=== PATIENT | female | born 2000 | race Caucasian/White ===

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

== ENCOUNTER 2022-04-22 02:57 | Inpatient (IN) ==
[2022-04-22] MEDS ORDERED: LIDOCAINE 1% LOCAL 20 ML VIAL INFIL PRN (03:59)
[2022-04-22] MEDS ORDERED: OXYTOCIN 30 UNITS/500 ML BAG IV PRN ×3 (03:59→15:31)
[2022-04-22 05:03] LABS: Hemoglobin 11.9 g/dl (12.0-16.0); Mean Corpuscular Hemoglobin 28.7 pg (25.0-34.0); Mean Corpuscular Volume 84.3 fL (80.0-100.0); Mean Platelet Volume 9.9 fL (9.4-12.3); Platelet Count 243 K/uL (130-400); RDW Coefficient of Variation 13.5 % (11.5-14.5); RDW Standard Deviation 41.5 fL (36.4-46.3); Red Blood Count 4.15 M/uL (3.93-5.22); White Blood Count 12.98 K/ul (4.8-10.8)
--- NOTE | 2022-04-22 07:02 | History & Physical Report ---
Date of Service April 22, 2022 Assessment & Plan (1) Encounter for induction of labor: (2) 41 weeks gestation of : (3) Migraine headache: (4) Supervision of normal first : Plan Alberta is a 21F currently at 41 1/7 with KATELYN 04/14/22 determined by LMP of 07/04/21 who is presenting to L&D d/t regular contractions early AM of 04/22. Patient was scheduled for induction 04/22. - Patient admitted to labor and delivery for labor, no ROM - Membrane sweep 04/19 - Presented early AM 04/22 w/ regular contractions (~5 minutes) - Category 1 FHT, w/ contractions 2 minutes apart @ 0600 - D/E/S: Pending OBGYN exam - Consider augmentation w/ oxytocin if not progressing - Once contractions are progressing, will consider ROM - Patient desires to avoid epidural, pain control discussed w/ patient - Labs pending Admission and Anticipated Discharge Date Admission Date: April 22, 2022 History of Present Illness Chief Complaint: Labor Primary Care Provider: NO PCP Subjective: Alberta is a 21F currently at 41 1/7 with KATELYN 04/14/22 determined by LMP of 07/04/21 who is presenting to L&D d/t regular contractions early AM of 04/22. Patient was scheduled for induction 04/22. Complications: None Reason for Induction: Post-date Movement: Yes Fluid Loss/ROM: None Bloody show/discharge: Lost mucous plug ~2400 on 04/21, occasional spotting since membrane sweep 04/19 Contractions: Patient notes contractions became 5 min apart ~ 2400 on 04/21, patient has experienced random contraction since membrane sweep in office 04/19. External FHT and uterine monitor: Category 1, tracing reactive, good FHT variability (accelerations w/o decelerations), average 135-140 Last OB appointment: 04/19, regular care D[employer] IN[employer] Hx: No hx of abnormal paps, No hx of STDs Labs: Blood Type: O+ Antibody Screen: Negative Hg/Hct (today): 11.9/35 WBC/Plt (today): 12.98/243 Rubella: Immune RPR: Non-reactive Gonorrhea: Negative Chlamydia: Negative HIV: Negative HbSAg: Negative GBS: Negative Cff-DNA: Low risk Panorama: Low risk ROS: - Denies fever, chills, endorses sweats (chronic) - Denies dyspnea or pleuritic pain - Denies chest pain, palpitations, or pressure - Denies breast pain - Denies dysuria - Denies headache or visual changes - Endorses chronic migraines, required ER visit in February, lack of response to Tylenol/Magnesium, none at present . Allergies Allergy/AdvReac Type Severity Reaction Status Date / Time No Known Allergies Allergy Verified 04/19/22 08:29 Home Medications Medication Instructions Recorded Confirmed Type prenat.vits,luis a,tpd-[id number]-diqhv 1 tab PO DAILY 08/20/21 04/22/22 History Patient History Medical History Anxiety and depression Migraine headache Surgical History [place] teeth extracted Family History Aunt Breast cancer paternal Other Hypertension Denies family history of Ovarian cancer Colorectal cancer Uterine cancer Social History Smoking Status: Never smoker Second Hand Exposure: No; Do You Dip or Chew Tobacco: No; Tobacco Cessation Education Requested by Patient: No Hx Alcohol Use: No Hx Substance Use: No Preferred Language: Bangladeshi Communication Ability: Effective Rail Walker Required: No Beliefs That Will Affect Care: None marital status: Single marital status details: wander Escobedo (21) [phone] Current Living Situation: Significant Other Current Living Situation Comment: Lives with boyfriend and 1 cat current occupational status: employed current occupation: [employer] Other Information That Helps Us Care for You: No Feels Safe at Home: Yes Safety Concerns: Feels Safe At This Time Assistive Devices: None Physical Exam Physical Exam: General: Alert, oriented. No acute distress. Cardiac: Regular rate and rhythm, no murmurs/rubs/gallops. Respiratory: Clear to auscultation bilaterally a/p, no wheezes/rales/rhonchi. No increased work of breathing. Symmetrical chest rise. No respiratory distress. Abdomen: Gravid; reactive FHTs; Position: Vertex via John Maneuver Pelvic: D/E/S pending OBGYN examination. Lower Extremities: 1+ non-pitting lower extremity edema. No deep calf pain. Kellie's negative bilaterally Results & Data ([facility]) Vital Signs (Past 12 Hours) Vital Signs Temp Pulse Resp BP 04/22/22 06:03 87 134/79 04/22/22 05:08 98 H 134/76 04/22/22 03:17 85 149/73 H 04/22/22 03:13 92 H 143/67 H 04/22/22 03:18 36.6 C 85 18 149/73 H Code Status & VTE Plan Code Status Full Code Resident Activity Tracking Resident Involvement: Resident Care Provided Care Provided: OB Delivery
[2022-04-22] MEDS: LACTATED RINGER'S 1,000 ML IV PRN ×2 (07:25→09:02)
[2022-04-22] MEDS: BUTORPHANOL TARTRATE 1 MG/ML VIAL IV PRN ×2 (07:29→08:35)
[2022-04-22] MEDS ORDERED: ePHEDrine sulfate 50 MG/ML AMP ONE (08:42)
[2022-04-22] MEDS ORDERED: fentaNYL citrate 100 MCG/2 ML VIAL ONE (08:43)
[2022-04-22] MEDS ORDERED: BUPIVACAINE 0.25% 30 ML VIAL ONE (08:43)
[2022-04-22] MEDS ORDERED: LIDOCAINE 2%/EPINEPHRINE 1:200,000 20 ML SDV ONE (08:43)
[2022-04-22] MEDS ORDERED: SODIUM CHLORIDE 0.9% INJ 10 ML VIAL ONE (08:43)
[2022-04-22] MEDS ORDERED: fentaNYL 2MCG/ML ROPIVACAINE 1.25MG/ML 100 ML BAG EPI ONE (08:44)
[2022-04-22] MEDS ORDERED: PROMETHAZINE HCL 6.25 MG in SODIUM CHLORIDE 0.9% 50 ML IV PRN (09:33)
[2022-04-22] MEDS ORDERED: diphenhydrAMINE 50 MG/ML VIAL IV PRN (09:33)
[2022-04-22] MEDS ORDERED: ePHEDrine sulfate 50 MG/ML AMP IV PRN (09:33)
[2022-04-22] MEDS ORDERED: NALOXONE HCL 1 MG in SODIUM CHLORIDE 0.9% 1000ML 1,000 ML IV PRN (09:33)
[2022-04-22] MEDS ORDERED: NALBUPHINE HCL INJ 10 MG/ML AMP IV PRN (09:33)
[2022-04-22] MEDS ORDERED: fentaNYL 2MCG/ML ROPIVACAINE 1.25MG/ML 100 ML BAG EPI PRN (09:33)
[2022-04-22] MEDS ORDERED: ONDANSETRON INJ 2 MG/ML 2 ML VIAL IV PRN (09:33)
[2022-04-22] MEDS ORDERED: NALOXONE HCL 0.4 MG/1 ML VIAL/CARP IV PRN (09:33)
--- NOTE | 2022-04-22 09:33 | Anesthesiology Consultation ---
Date of Service April 22, 2022 Assessment & Plan Chart Review Chart Review: Patient NOT seen in Pre Admission Testing and Acceptable Risk for Labor Epidural Consults Requested none ASA ASA2 Proposed Anesthesia Anesthesia Type: Labor Epidural Risk / Benefits Reviewed With: PT / POA / Parent / Guardian, Accepts Plan and Informed Consent Obtained History Height/Weight Height: 5 ft 3 in Weight: 108.862 kg Allergies Allergy/AdvReac Type Severity Reaction Status Date / Time No Known Allergies Allergy Verified 04/19/22 08:29 Medications Home Medications Medication Instructions Recorded Confirmed Last Taken prenat.vits,luis a,xtd-cgvn-mrurj 1 tab PO DAILY 08/20/21 04/22/22 04/21/22 08:00 Active Medications Generic Name Dose Route Start Last Admin Trade Name Freq PRN Reason Stop Dose Admin Butorphanol Tartrate 1 mg 04/22/22 07:23 04/22/22 08:35 Butorphanol Tartrate 1 Mg/Ml Vial IV 05/22/22 07:22 1 mg Q1H PRN Administration Pain Lactated Ringer's 1,000 mls @ 125 mls/hr 04/22/22 03:59 04/22/22 09:02 Lr IV 04/24/22 03:58 125 mls/hr .Q8H PRN Administration L&D Protocol Protocol Past Medical History Medical History Anxiety and depression Migraine headache Exercise / Class Metabolic Activity II 4-5 Yardwork/Stairs/Walk up hill Past Family History Family History Aunt Breast cancer paternal Other Hypertension Denies family history of Ovarian cancer Colorectal cancer Uterine cancer Past Surgical History Surgical History [place] teeth extracted Past Anesthesia History No Hx of Anesthesia Complications and No Family Hx of Anesthesia Complications History of PONV No Hx of PONV and No Hx of Motion Sickness Social History Smoking Status: Never smoker Do You Dip or Chew Tobacco: No Hx Alcohol Use: No Hx Substance Use: No substance use type: does not use Physical Exam Vital Signs Last Vital Signs Temp 37 C 04/22/22 07:05 Pulse 121 H 04/22/22 09:32 Resp 18 04/22/22 07:05 BP 128/65 04/22/22 09:32 Pulse Ox 100 04/22/22 09:28 ENMT Mouth: no dentition abnormality Thyromental Distance: > or= 3.5 Finger Breadths Mallampati Class: II Neck normal visual inspection Respiratory normal respiratory effort Auscultation: lungs clear to auscultation bilaterally Cardiovascular Rate/Rhythm: regular rate and regular rhythm Psychiatric Orientation: alert Testing Laboratory Results 04/22/22 04:31
--- NOTE | 2022-04-22 11:11 | Labor Progress Brief Note ---
Date of Service April 22, 2022 Subjective Comfortable with epidural. FHT Cat 1 [place] irreg SVE 5/100/-1 Continue pitocin. Assessment & Plan Admission and Anticipated Discharge Date Admission Date: April 22, 2022 Results & Data ([facility]) Vital Signs (Past 12 Hours) Vital Signs Temp Pulse Resp BP Pulse Ox 04/22/22 07:05 37 C 18 04/22/22 11:10 106 H 129/68 04/22/22 11:08 102 H 77 L 04/22/22 11:03 98 H 99 04/22/22 10:58 101 H 98 04/22/22 10:56 87 94 04/22/22 10:55 95 H 113/60 04/22/22 10:53 96 H 95 04/22/22 10:48 87 L 04/22/22 10:48 113 H 04/22/22 10:48 107 H 93 04/22/22 10:43 97 H 99 04/22/22 10:41 92 H 89 L 04/22/22 10:40 92 H 117/59 L 04/22/22 10:38 87 96 04/22/22 10:35 113 H 94 04/22/22 10:05 15 04/22/22 10:05 37.0 C 15 04/22/22 10:33 102 H 98 04/22/22 10:29 94 H 91 04/22/22 10:28 123 H 76 L 04/22/22 10:25 107 H 124/72 04/22/22 10:23 114 H 99 04/22/22 10:18 87 98 04/22/22 10:13 82 99 04/22/22 10:10 103 H 92 04/22/22 10:09 111 H 105/53 L 04/22/22 10:08 81 97 04/22/22 10:03 87 97 04/22/22 09:58 81 98 04/22/22 09:54 99 H 112/52 L 04/22/22 09:53 98 H 95 04/22/22 09:49 104 H 93 04/22/22 09:48 98 H 97 04/22/22 09:44 97 H 93 04/22/22 09:43 99 H 96 04/22/22 09:38 100 H 97 04/22/22 09:37 118 H 93 04/22/22 09:33 135 H 98 04/22/22 09:32 121 H 128/65 04/22/22 09:28 123 H 100 04/22/22 09:27 129 H 134/71 04/22/22 09:25 103 H 91 04/22/22 09:23 84 100 04/22/22 09:21 75 140/80 04/22/22 09:18 91 04/22/22 09:18 114 H 04/22/22 09:18 135 H 88 L 04/22/22 09:09 107 H 97 04/22/22 09:08 89 94 04/22/22 09:04 73 100 04/22/22 08:59 73 99 04/22/22 08:55 82 93 04/22/22 08:54 78 99 04/22/22 08:49 71 100 04/22/22 08:47 95 H 92 04/22/22 08:44 85 100 04/22/22 08:41 84 89 L 04/22/22 08:39 91 H 99 04/22/22 08:34 94 04/22/22 08:34 81 04/22/22 08:34 92 H 92 04/22/22 08:24 75 90 04/22/22 08:21 82 99 04/22/22 08:16 83 93 04/22/22 08:11 77 98 04/22/22 08:06 76 98 04/22/22 08:01 89 93 04/22/22 07:56 78 99 04/22/22 07:51 81 97 04/22/22 07:46 77 98 04/22/22 07:45 76 134/81 04/22/22 07:41 86 98 04/22/22 07:36 78 98 04/22/22 07:31 69 96 04/22/22 07:30 84 139/94 04/22/22 07:26 73 100 04/22/22 07:21 81 100 04/22/22 07:22 81 91 04/22/22 07:14 88 94 04/22/22 07:05 37.0 C 69 139/81 04/22/22 06:03 87 134/79 04/22/22 05:08 98 H 134/76 04/22/22 03:17 85 149/73 H 04/22/22 03:13 92 H 143/67 H 04/22/22 03:18 36.6 C 85 18 149/73 H Coding Level of Care Code None
[2022-04-22] MEDS ORDERED: NURSING L&D Epidural Breakthrough Pain Update ONE (14:46)
--- NOTE | 2022-04-22 14:54 | Labor Progress Brief Note ---
Date of Service April 22, 2022 Subjective Uncomfortable - feeling pressure. FHT Cat 1 [place] Q 2-3 min SVE 10/100/+1 AROM clear fluid. OK to start pushing when she feels urge. Assessment & Plan Admission and Anticipated Discharge Date Admission Date: April 22, 2022 Results & Data ([facility]) Vital Signs (Past 12 Hours) Vital Signs Temp Pulse Resp BP Pulse Ox 04/22/22 07:05 37 C 18 04/22/22 14:48 104 H 84 L 04/22/22 14:45 100 H 94 04/22/22 14:43 106 H 100 04/22/22 14:38 99 H 93 04/22/22 14:35 111 H 92 04/22/22 14:33 107 H 98 04/22/22 14:28 106 H 98 04/22/22 14:29 112 H 94 04/22/22 14:24 103 H 130/59 L 04/22/22 14:23 98 H 97 04/22/22 14:22 104 H 91 04/22/22 14:18 95 H 97 04/22/22 14:17 99 H 92 04/22/22 14:13 103 H 97 04/22/22 14:10 100 H 121/60 04/22/22 14:09 110 H 91 04/22/22 14:08 104 H 97 04/22/22 14:01 20 04/22/22 14:01 20 04/22/22 14:03 89 95 04/22/22 14:04 95 H 92 04/22/22 13:58 96 H 96 04/22/22 13:57 101 H 92 04/22/22 13:55 98 H 124/59 L 04/22/22 13:53 104 H 98 04/22/22 13:50 103 H 92 04/22/22 13:48 107 H 97 04/22/22 13:43 109 H 97 04/22/22 13:15 20 04/22/22 13:15 20 04/22/22 13:31 20 04/22/22 13:31 20 04/22/22 13:40 94 H 123/67 04/22/22 13:38 105 H 95 04/22/22 13:39 105 H 92 04/22/22 13:33 108 H 90 04/22/22 13:32 107 H 89 L 04/22/22 13:28 97 H 87 L 04/22/22 13:25 93 H 121/74 94 04/22/22 13:23 99 H 95 04/22/22 13:18 98 H 96 04/22/22 13:19 96 H 94 04/22/22 13:13 95 H 94 04/22/22 13:14 98 H 94 04/22/22 13:12 102 H 137/62 04/22/22 12:45 18 04/22/22 12:45 18 04/22/22 13:08 95 H 98 04/22/22 13:06 104 H 92 04/22/22 13:03 98 H 99 04/22/22 13:01 106 H 93 04/22/22 12:58 97 H 97 04/22/22 12:55 107 H 133/57 L 92 04/22/22 12:53 118 H 90 04/22/22 12:50 106 H 90 04/22/22 12:48 99 H 98 04/22/22 12:43 98 H 98 04/22/22 12:41 100 H 94 04/22/22 12:40 90 125/65 04/22/22 12:38 98 H 100 04/22/22 12:33 94 H 93 04/22/22 12:28 96 H 95 04/22/22 12:27 99 H 93 04/22/22 12:25 103 H 120/59 L 04/22/22 12:23 99 H 93 04/22/22 12:22 100 H 94 04/22/22 12:18 106 H 91 04/22/22 12:17 94 H 94 04/22/22 12:13 96 H 98 04/22/22 12:09 107 H 126/64 04/22/22 12:08 99 H 98 04/22/22 12:06 98 H 94 04/22/22 12:03 97 H 94 04/22/22 12:01 92 H 94 04/22/22 11:58 88 95 04/22/22 11:55 101 H 123/65 04/22/22 11:54 99 H 94 04/22/22 11:53 92 H 97 04/22/22 11:48 88 95 04/22/22 11:43 98 H 93 04/22/22 11:39 105 H 125/56 L 04/22/22 11:38 99 H 96 04/22/22 11:35 89 93 04/22/22 11:33 89 100 04/22/22 11:30 86 90 04/22/22 11:28 88 96 04/22/22 11:26 91 H 131/63 04/22/22 11:24 115 H 92 04/22/22 11:23 108 H 97 04/22/22 11:18 110 H 94 04/22/22 11:19 103 H 94 04/22/22 11:13 101 H 93 04/22/22 11:10 106 H 129/68 04/22/22 11:08 102 H 77 L 04/22/22 11:03 98 H 99 04/22/22 10:58 101 H 98 04/22/22 10:56 87 94 04/22/22 10:55 95 H 113/60 04/22/22 10:53 96 H 95 04/22/22 10:48 87 L 04/22/22 10:48 113 H 04/22/22 10:48 107 H 93 04/22/22 10:43 97 H 99 04/22/22 10:41 92 H 89 L 04/22/22 10:40 92 H 117/59 L 04/22/22 10:38 87 96 04/22/22 10:35 113 H 94 04/22/22 10:05 15 04/22/22 10:05 37.0 C 15 04/22/22 10:33 102 H 98 04/22/22 10:29 94 H 91 04/22/22 10:28 123 H 76 L 04/22/22 10:25 107 H 124/72 04/22/22 10:23 114 H 99 04/22/22 10:18 87 98 04/22/22 10:13 82 99 04/22/22 10:10 103 H 92 04/22/22 10:09 111 H 105/53 L 04/22/22 10:08 81 97 04/22/22 10:03 87 97 04/22/22 09:58 81 98 04/22/22 09:54 99 H 112/52 L 04/22/22 09:53 98 H 95 04/22/22 09:49 104 H 93 04/22/22 09:48 98 H 97 04/22/22 09:44 97 H 93 04/22/22 09:43 99 H 96 04/22/22 09:38 100 H 97 04/22/22 09:37 118 H 93 04/22/22 09:33 135 H 98 04/22/22 09:32 121 H 128/65 04/22/22 09:28 123 H 100 04/22/22 09:27 129 H 134/71 04/22/22 09:25 103 H 91 04/22/22 09:23 84 100 04/22/22 09:21 75 140/80 04/22/22 09:18 91 04/22/22 09:18 114 H 04/22/22 09:18 135 H 88 L 04/22/22 09:09 107 H 97 04/22/22 09:08 89 94 04/22/22 09:04 73 100 04/22/22 08:59 73 99 04/22/22 08:55 82 93 04/22/22 08:54 78 99 04/22/22 08:49 71 100 04/22/22 08:47 95 H 92 04/22/22 08:44 85 100 04/22/22 08:41 84 89 L 04/22/22 08:39 91 H 99 04/22/22 08:34 94 04/22/22 08:34 81 04/22/22 08:34 92 H 92 04/22/22 08:24 75 90 04/22/22 08:21 82 99 04/22/22 08:16 83 93 04/22/22 08:11 77 98 04/22/22 08:06 76 98 04/22/22 08:01 89 93 04/22/22 07:56 78 99 04/22/22 07:51 81 97 04/22/22 07:46 77 98 04/22/22 07:45 76 134/81 04/22/22 07:41 86 98 04/22/22 07:36 78 98 04/22/22 07:31 69 96 04/22/22 07:30 84 139/94 04/22/22 07:26 73 100 04/22/22 07:21 81 100 04/22/22 07:22 81 91 04/22/22 07:14 88 94 04/22/22 07:05 37.0 C 69 139/81 04/22/22 06:03 87 134/79 12/19/22 05:08 98 H 134/76 04/22/22 03:17 85 149/73 H 04/22/22 03:13 92 H 143/67 H 04/22/22 03:18 36.6 C 85 18 149/73 H Coding Level of Care Code None
--- NOTE | 2022-04-22 15:20 | Delivery Summary ---
Vaginal Delivery Summary Date of Service April 22, 2022 Vaginal Delivery Summary and 2nd Degree LAC Vaginal Delivery Summary: Pre-delivery diagnoses: 21yo @ 41 1/, spontaneous labor Post-delivery diagnoses: same Procedure: spontaneous vaginal delivery, repair of 2nd degree perineal laceration Surgeon: Cherry Collier DO Complications: none Findings: Viable female . Apgars: 8/9. Weight pending, please see nursery records Estimated blood loss: 300ml Description of delivery: The patient progressed to complete with epidural anesthesia. She then began to push. She spontaneously vaginally delivered a viable from the cephalic presentation. The head delivered in PATRICIO position. The anterior shoulder delivered, followed by the posterior shoulder, followed by the body. No nuchal. The baby was placed on mother's abdomen and a spontaneous cry was heard. Delayed cord clamping was employed, and the cord was doubly clamped and cut. Cord blood was obtained. The placenta was delivered spontaneously intact with a 3-vessel cord. The uterus and vagina were swept of clots and debris. IV pitocin was given. The uterus became firm. The cervix, vagina, and perineum were inspected and a 2nd degree perineal laceration was noted and repaired in standard fashion with 3-0 vicryl. Bilateral periurethral lacerations, hemostatic, not repaired. Excellent hemostasis was observed. The mother and baby are recovering in stable and good condition in the room. Sponge, needle and instrument counts were correct x 2. Cherry Collier DO [facility] Vaginal Delivery Charge Vaginal Delivery Codes: 44518 global code for the antepartum, delivery, and post- Delivery Type Details: and 2nd Degree LAC
[2022-04-22] MEDS ORDERED: bisacodyL 10 MG SUPP PR PRN (15:31)
[2022-04-22] MEDS ORDERED: oxyCODONE/ACETAMINOPHEN 5mg/325mg TAB PO PRN (15:31)
[2022-04-22] MEDS ORDERED: ACETAMINOPHEN 325 MG TAB PO PRN (15:31)
[2022-04-22] MEDS ORDERED: DIPHTHERIA/TETANUS/PERTUSSIS 0.5 ML SYR/VIAL IM ONE (15:31)
[2022-04-22] MEDS ORDERED: HYDROCORTISONE ACETATE 25 MG SUPP PR PRN (15:31)
[2022-04-22] MEDS ORDERED: BENZOCAINE 20% AER SPR 82.5 GM CAN EXT PRN (15:31)
--- NOTE | 2022-04-22 17:37 | Anesthesia Procedure Note ---
Date of Service April 22, 2022 Anesthesia Post Epidural Note Vital Signs Vital Signs: Temp Pulse Resp BP Pulse Ox 37.0 C 105 H 20 132/72 86 L 04/22/22 10:05 04/22/22 17:16 04/22/22 14:01 04/22/22 17:16 04/22/22 15:18 Pain Intensity Abdomen: Pain Intensity: 0 Notes Mental Status: alert / awake / arousable Nausea / Vomiting: adequately controlled Pain: adequately controlled Airway Patency, RR, SpO2: stable & adequate BP & HR: stable & adequate Hydration State: stable & adequate Neuraxial Anesthesia: was administered and sensory block is resolving Anesthetic Complications: no major complications apparent and Pt Satisfied with anesthetic care Epidural: Removed without complications and With tip intact
[2022-04-22] MEDS: IBUPROFEN 600 MG TAB PO PRN (20:01)
[2022-04-22] MEDS: DOCUSATE SODIUM 100 MG CAP PO SCH (20:01)
[2022-04-23] MEDS: IBUPROFEN 600 MG TAB PO PRN ×3 (04:11→14:51)
--- NOTE | 2022-04-23 05:09 | Hospitalist Progress Note ---
Date of Service April 23, 2022 Assessment & Plan (1) care following vaginal delivery: Plan - Overall, feeling well and eating well today - Infant feeding going well without concern - Urinating and passing gas appropriately - Ambulating well in room - Pain controlled w/ Ibuprofen - Hgb 10.3 on 04/23 - Vitals stable and wnl (P 96) - Routine PP care progressing well - Anticipate discharge @ 24-48 hours PP - Recommending f/u outpatient in 6 weeks Admission and Anticipated Discharge Date Admission Date: April 22, 2022 Supervising Physician Co-Signing Physician Notes Resident Physician Supervision Note: I was present with Dr. Richardson during the history and exam. I discussed the case with the resident and agree with the findings and plan as documented in the note. Any exceptions or clarifications are listed here: PPD#1 doing well. Would like to go home today. Reviewed instructions. Documented By: Cherry Collier, DO Subjective Alberta is a 21F who is PPD #1 following vaginal delivery at 41 1/. She reports feeling well overall this morning. - Ambulation - well throughout room - Voiding/Rdz - independent voids, no dysuria or pressure - Gas/Stool - passing gas, no bowel movement - Diet - regular, no nausea or emesis - Lochia - diminishing, heavier than normal period - Feeding Type - breast feeding, feeding well w/o concern - Pain Level - 4/10, controlled with Ibuprofen Review of Systems - Denies fever, chills, sweats - Denies shortness of breath, difficulty breathing, chest pain, palpitations, chest pressure. - Denies breast pain. - Denies dysuria. - Denies headache or changes in vision. Physical Exam Physical Exam: General: Alert, oriented. No acute distress. Cardiac: RRR, normal S1/S2, no murmurs/rubs/gallops. Respiratory: Non-labored, CTAB, no wheezes/rales/rhonchi. Symmetric chest rise. Abdomen: Soft, nontender, nondistended. Bowel sounds present. Uterus: Uterine fundus firm, palpable 2 cm below umbilicus. Lower Extremities: 1+ non-pitting lower extremity edema or swelling. No deep calf pain. Kellie's negative bilaterally. Results & Data Results & Data ([facility]) Vital Signs (Past 12 Hours) Vital Signs Temp Pulse Pulse Resp BP BP Pulse Ox 04/23/22 03:58 36.8 C 96 H 16 126/76 98 04/22/22 23:14 37.0 C 87 18 122/75 95 04/22/22 20:03 36.4 C L 95 H 18 112/72 97 04/22/22 18:00 36.8 C 86 18 129/76 04/22/22 17:16 105 H 132/72 O2 Del Method 04/23/22 03:58 Room Air 04/22/22 23:14 Room Air 04/22/22 20:03 Room Air 04/22/22 18:00 Room Air 04/22/22 17:16 Resident Activity Tracking Resident Involvement: Resident Care Provided Care Provided: OB Delivery
[2022-04-23 06:26] LABS: Hematocrit (blood only) 31.3 % (34.1-44.9); Hemoglobin 10.3 g/dl (12.0-16.0)
[2022-04-23] MEDS: DOCUSATE SODIUM 100 MG CAP PO SCH (07:56)
[2022-04-23] MEDS ORDERED: PRENATAL VITAMIN 1 TAB PO SCH (08:00)
[2022-04-23] MEDS ORDERED: bisacodyL 5 MG TABEC PO SCH (20:00)
== END 2022-04-23 17:25 | disposition home or self-care (01) | DRG 807 ==
LOC: 4S1 02:57 → 4E2 17:50